=== PATIENT | male | born 1960 | race Caucasian/White ===

== ENCOUNTER 2016-05-25 15:01 | Emergency (ER) | payer OTHER ==
--- NOTE | 2016-05-25 15:31 | ED NURSING NOTES ---
Clinical Report - Nurses [facility] [address] [place] [address] 05/25/2016 15:04 Patient: HA SILVA TRIAGE Triage time 15:11. Acuity: LEVEL 3. Chief Complaint: LEFT LOWER EXTREMITY PAIN and SWELLING. Location of symptoms- (no injury). Alert. No acute distress. RACHELLE COMA SCORE: Rachelle Coma Scale: 15- eyes open spontaneously (4); best verbal response- oriented x 4 (5); best motor response- obeys commands (6). --15:28 Sylwia Kim R.N. 15:11 05/25/16. BP: 138/89. HR: 97. RR: 20. O2 saturation: 98%. Temp: 98.7 F. Pain level now: 8/10. Additional comments: inc with movement and pressure . --15:28 Sylwia Kim R.N. Weight: 142.8 kg. Height/Length: 77 inches. BMI: 37.4. --15:15 Sylwia Kim R.N. Medications Lisinopril Oral. --15:22 Sylwia Kim R.N. Magnesium Oral. --15:22 Sylwia Kim R.N. Carvedilol Phosphate ER Oral. Spironolactone Oral. --15:23 Sylwia Kim R.N. Lasix Oral. --15:23 Sylwia Kim R.N. Medication/allergy information source: the patient. --15:28 Sylwia Kim R.N. Allergies No Known Drug Allergy. --15:23 Sylwia Kim R.N. History Arrived by private vehicle. Historian: patient. 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 No injury occurred. This occurred (2 days ago). It is described as radiating to the left lower extremity and calf. Provoking / relieving factors: relieved by standing and walking. He has had swelling and trouble walking. The patient has been limping when trying to walk. 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 PAST MEDICAL HX: Hypertension. Heart disease. Tetanus status: up-to-date. ( [place]). SOCIAL HX: Never smoker. No alcohol use or drug use. FALL RISK ASSESSMENT: Fall risk assessment completed. No fall risk identified. NUTRITIONAL RISK ASSESSMENT: The nutritional risk assessment revealed no deficiencies. FUNCTIONAL ASSESSMENT: Functional assessment: no impairments noted. LEARNING NEEDS ASSESSMENT: The learning needs assessment revealed no barriers. SKIN INTEGRITY ASSESSMENT: Skin integrity risk assessment completed. No skin integrity risk identified. --15:28 Sylwia Kim R.N. Interventions ID band on patient. To room. --15:28 Sylwia Kim R.N. PHYSICAL ASSESSMENT Ambulatory to room. GENERAL / NEURO / PSYCH: Oriented X 4. Alert. Appears in no acute distress. EXTREMITIES: Erythema on the extremities. Limited ROM present. Increased warmth on the extremities. Lower extremity edema. Left foot: tenderness, swelling and erythema. Limited weight bearing secondary to pain. SKIN: Skin intact. Skin is warm and dry. --15:29 Sylwia Kim R.N. NURSING PROGRESS NOTES Extremity elevated. Two patient identifiers checked. Call light placed in reach. Side rails up x 2. Bed placed in lowest position. Brakes of bed on. Patient ready for evaluation. --15:29 Sylwia Kim R.N. 16:27 05/25/2016 Hydrocodone-APAP (Hydrocodone-Acetaminophen) PO 5/325 mg Tablets 1 tab given. Allergies verified, confirmed 5 rights and sedative warning given to the patient. --16:27 Sylwia Kim R.N. DISPOSITION / DISCHARGE Condition at departure: improved. No learning barriers present. Discharge instructions provided and reviewed with the patient. Reviewed medication(s) side effects, precautions, dosing and course information. Prescription(s) given to the patient. Patient verbalized understanding. Written instructions provided in Faroese. The patient was discharged home and accompanied by gum machine operator. He left the Emergency Department ambulatory and via private vehicle. Brewing Technician driving. Medication list reviewed and validated. --16:31 Sylwia Kim R.N. 16:28 05/25/16. BP: 144/74. HR: 84. RR: 20. O2 saturation: 98% on room air. Temp: deferred. Pain level now: 7/10. 15:11 05/25/16. BP: 138/89. HR: 97. RR: 20. O2 saturation: 98%. Temp: 98.7 F. Pain level now: 810. Additional comments: inc with movement and pressure . --16:31 Sylwia Kim R.N. 16:28 05/25/16. BP: 144/74. HR: 84. RR: 20. O2 saturation: 98% on room air. Temp: deferred. Pain level now: 10. 15:11 05/25/16. BP: 138/89. HR: 97. RR: 20. O2 saturation: 98%. Temp: 98.7 F. Pain level now: 810. Additional comments: inc with movement and pressure . --16:31 Sylwia Kim R.N. Locked/Released at 05/25/2016 16:32 by Sylwia Kim R.N.
--- NOTE | 2016-05-25 15:31 | ED CLINICAL REPORT ---
Clinical Report - Physicians/Mid Levels [facility] [address] [place] [address] 05/25/2016 15:04 Patient: HA SILVA Time Seen: 15:20; initial patient contact, initial documentation, patient care assumed. Arrived- By private vehicle. Historian- patient. HISTORY OF PRESENT ILLNESS Chief Complaint: LOWER EXTREMITY PAIN. Severity is described as being severe. The quality is noted to be "pain". No radiation. Not worsened by anything and relieved by anything. This started about 4 - 5 days ago. Symptoms located in the area of the left foot. The patient has had redness and swelling. No difficulty walking. No bladder dysfunction, bowel dysfunction, sensory loss or motor loss. Patient denies an injury. Similar symptoms previously: None. Recent medical care: Not recently seen/assessed. REVIEW OF SYSTEMS All systems otherwise negative, except as recorded above. PAST HISTORY See nurses notes. ( PAST MEDICAL HX: Hypertension. Heart disease). SOCIAL HISTORY Never smoker. No alcohol use or drug use. No recent travel. FAMILY HISTORY Negative. ADDITIONAL NOTES The nursing notes have been reviewed with agreement regarding the chief complaint, HPI, ROS, PMH and patient medications and allergies. PHYSICAL EXAM Vital Signs: 05/25/2016 15:11 BP: 138/89. HR: 97. RR: 20. O2 saturation: 98%. Temp: 98.7 F. Pain level now: 8/10. Have been reviewed as normal and appear to be correct. Appearance: Alert. Oriented X3. No acute distress. Eyes: Pupils equal, round and reactive to light. Eyes normal inspection. Respiratory: No respiratory distress. Skin: Skin intact. Skin warm and dry. Normal skin color. Normal skin turgor. Extremities: Left foot: mild erythema, tenderness and swelling of the first toe. Limited weight bearing secondary to pain. Neurovascular intact distally. No laceration, abrasion, ecchymosis, puncture wound or foreign body. No deformity. Lower extremities exhibit normal ROM. No lower extremity edema. Extremities otherwise negative. Gait: Abnormal gait. Limping gait. Neuro: Oriented X 3. No motor deficit. No sensory deficit. PROGRESS AND PROCEDURES Patient counseled in person regarding the patient's stable condition and diagnosis. 15:31. Differential Diagnosis: Other possible considerations: gout, cellulitis, abscess, fungus, bunyon. Above considerations are based on history and physical exam. Differential diagnosis was discussed with patient. Disposition: Discharged home in good and improved condition (15:31). Condition: good and stable. 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 INSTRUCTIONS Warnings: GENERAL WARNINGS: Return or contact your physician immediately if your condition worsens or changes unexpectedly, if not improving as expected, or if other problems arise. Specifically return if problem worsens. Prescription Medications: Ultram 50 mg tablets: take 1-2 orally every 6 hours as needed for pain. Dispense twenty (20). No refills. Substitution is permissible. Colchicine 0.6 mg tablets: take 1 tablet orally every 1-2 hours as needed. Do not take more than 4mg in one day. Dispense twenty (20). No refills. Follow-up: Follow up with your doctor in three days as needed. Call for an appointment. Summary of care provided to patient. Understanding of the discharge instructions verbalized by patient. (Electronically signed by Mirna Gan A.R.N.P. 05/25/2016 17:12)
--- NOTE | 2016-05-25 15:31 | ED NURSING NOTES ---
Clinical Report - Nurses [facility] [address] [place] [address] 05/25/2016 15:04 Patient: HA SILVA TRIAGE Triage time 15:11. Acuity: LEVEL 3. Chief Complaint: LEFT LOWER EXTREMITY PAIN and SWELLING. Location of symptoms- (no injury). Alert. No acute distress. RACHELLE COMA SCORE: Rachelle Coma Scale: 15- eyes open spontaneously (4); best verbal response- oriented x 4 (5); best motor response- obeys commands (6). --15:28 Sylwia Kim R.N. 15:11 05/25/16. BP: 138/89. HR: 97. RR: 20. O2 saturation: 98%. Temp: 98.7 F. Pain level now: 8/10. Additional comments: inc with movement and pressure . --15:28 Sylwia Kim R.N. Weight: 142.8 kg. Height/Length: 77 inches. BMI: 37.4. --15:15 Sylwia Kim R.N. Medications Lisinopril Oral. --15:22 Sylwia Kim R.N. Magnesium Oral. --15:22 Sylwia Kim R.N. Carvedilol Phosphate ER Oral. Spironolactone Oral. --15:23 Sylwia Kim R.N. Lasix Oral. --15:23 Sylwia Kim R.N. Medication/allergy information source: the patient. --15:28 Sylwia Kim R.N. Allergies No Known Drug Allergy. --15:23 Sylwia Kim R.N. History Arrived by private vehicle. Historian: patient. 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 No injury occurred. This occurred (2 days ago). It is described as radiating to the left lower extremity and calf. Provoking / relieving factors: relieved by standing and walking. He has had swelling and trouble walking. The patient has been limping when trying to walk. 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 PAST MEDICAL HX: Hypertension. Heart disease. Tetanus status: up-to-date. ( [place]). SOCIAL HX: Never smoker. No alcohol use or drug use. FALL RISK ASSESSMENT: Fall risk assessment completed. No fall risk identified. NUTRITIONAL RISK ASSESSMENT: The nutritional risk assessment revealed no deficiencies. FUNCTIONAL ASSESSMENT: Functional assessment: no impairments noted. LEARNING NEEDS ASSESSMENT: The learning needs assessment revealed no barriers. SKIN INTEGRITY ASSESSMENT: Skin integrity risk assessment completed. No skin integrity risk identified. --15:28 Sylwia Kim R.N. Interventions ID band on patient. To room. --15:28 Sylwia Kim R.N. PHYSICAL ASSESSMENT Ambulatory to room. GENERAL / NEURO / PSYCH: Oriented X 4. Alert. Appears in no acute distress. EXTREMITIES: Erythema on the extremities. Limited ROM present. Increased warmth on the extremities. Lower extremity edema. Left foot: tenderness, swelling and erythema. Limited weight bearing secondary to pain. SKIN: Skin intact. Skin is warm and dry. --15:29 Sylwia Kim R.N. NURSING PROGRESS NOTES Extremity elevated. Two patient identifiers checked. Call light placed in reach. Side rails up x 2. Bed placed in lowest position. Brakes of bed on. Patient ready for evaluation. --15:29 Sylwia Kim R.N. 16:27 05/25/2016 Hydrocodone-APAP (Hydrocodone-Acetaminophen) PO 5/325 mg Tablets 1 tab given. Allergies verified, confirmed 5 rights and sedative warning given to the patient. --16:27 Sylwia Kim R.N. DISPOSITION / DISCHARGE Condition at departure: improved. No learning barriers present. Discharge instructions provided and reviewed with the patient. Reviewed medication(s) side effects, precautions, dosing and course information. Prescription(s) given to the patient. Patient verbalized understanding. Written instructions provided in Azeri. The patient was discharged home and accompanied by mechanic foreman. He left the Emergency Department ambulatory and via private vehicle. Academic Interventionist driving. Medication list reviewed and validated. --16:31 Sylwia Kim R.N. 16:28 05/25/16. BP: 144/74. HR: 84. RR: 20. O2 saturation: 98% on room air. Temp: deferred. Pain level now: 7/10. 15:11 05/25/16. BP: 138/89. HR: 97. RR: 20. O2 saturation: 98%. Temp: 98.7 F. Pain level now: 810. Additional comments: inc with movement and pressure . --16:31 Sylwia Kim R.N. 16:28 05/25/16. BP: 144/74. HR: 84. RR: 20. O2 saturation: 98% on room air. Temp: deferred. Pain level now: 10. 15:11 05/25/16. BP: 138/89. HR: 97. RR: 20. O2 saturation: 98%. Temp: 98.7 F. Pain level now: 810. Additional comments: inc with movement and pressure . --16:31 Sylwia Kim R.N. Locked/Released at 05/25/2016 16:32 by Sylwia Kim R.N.
--- NOTE | 2016-05-25 17:13 | ED ORDER SUMMARY ---
..... Patient: HA SILVA OrderSheet [facility] VisitID: [id number] [address] [place] [address] 56y, M Registration Date/Time: 05/25/2016 ORDER SHEET Weight: 142.8 kg Allergies: No Known Drug Allergy GENERAL ORDERS: MEDICATION ORDERS: Hydrocodone-APAP PO 5/325 mg (NOW, HIGH ALERT MEDICATION) (15:31 05/25/2016 Nadeem A.R.N.P.) (16:27 Martita R.N.) IV FLUIDS: ORDER SHEET NOTES: [Electronically signed by Sylwia Kim R.N. (16:32 05/25/2016)] [Electronically signed by Mirna GanRMarinoN.PMarino (17:12 05/25/2016)] [Electronically locked/signed by Sylwia Kim R.N. (16:32 05/25/2016)]
--- NOTE | 2016-05-25 17:13 | ED MAR SUMMARY ---
..... Medication Administration Record [facility] [address] [place] [address] Patient: HA SILVA Visit ID: [id number] 56y, M Weight: 142.8 kg Height/Length: 77 in BMI: 37.4 ALLERGIES: No Known Drug Allergy Given 16:27 05/25/2016 Sylwia Kim R.N. Medication Administered: HYDROCODONE-APAP [PO] (HYDROCODONE-ACETAMINOPHEN), Dose: 1 tab 5/325 mg Tablets PO. Medication Ordered: Hydrocodone-APAP PO 5/325 mg (NOW, HIGH ALERT MEDICATION).
--- NOTE | 2016-05-25 17:13 | ED MED RECONCILIATION SUMMARY ---
Patient: HA SILVA Medication Reconciliation Report [facility] VisitID: [id number] [address] [place] [address] 56y, M Registration Date/Time: 05/25/2016 Weight: 142.8 kg Height/Length: 77 in. BMI: 37.4 ALLERGIES: No Known Drug Allergy The patient's Home Medications are listed below: THE FOLLOWING MEDICATIONS NEED TO BE RECONCILED: Carvedilol Phosphate ER Oral Lasix Oral Lisinopril Oral Magnesium Oral Spironolactone Oral The source(s) of the original Home Medication information: patient The following Medications were given to the patient in the Emergency Department: Hydrocodone-APAP [PO] PO 1 tab, administered: 05/25/2016 4:27:00 PM The following Medications were prescribed to the patient: Ultram 50 mg tablets: take 1-2 orally every 6 hours as needed for pain. Dispense twenty (20). No refills. Substitution is permissible. -- Mirna Gan A.R.N.P. Colchicine 0.6 mg tablets: take 1 tablet orally every 1-2 hours as needed. Do not take more than 4mg in one day. Dispense twenty (20). No refills. -- Mirna Gan A.R.N.P.
--- NOTE | 2016-05-25 17:13 | ED DISCHARGE INSTRUCTIONS ---
Patient: HA SILVA General Instructions 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 INSTRUCTIONS Warnings: GENERAL WARNINGS: Return or contact your physician immediately if your condition worsens or changes unexpectedly, if not improving as expected, or if other problems arise. Specifically return if problem worsens. Prescription Medications: Ultram 50 mg tablets: take 1-2 orally every 6 hours as needed for pain. Dispense twenty (20). No refills. Substitution is permissible. Colchicine 0.6 mg tablets: take 1 tablet orally every 1-2 hours as needed. Do not take more than 4mg in one day. Dispense twenty (20). No refills. Follow-up: Follow up with your doctor in three days as needed. Call for an appointment. Summary of care provided to patient. Understanding of the discharge instructions verbalized by patient. ADDITIONAL INFORMATION Gout Gout or "gouty arthritis" is an inflammation of a joint due to a build-up of gout crystals in the joint fluid. This occurs when there is an excess uric acid (a normal waste product) in the body. Uric acid builds up in the body when the kidneys are unable to filter enough of it from the blood. This may occur with aging or kidney disease. Gout occurs more often in persons with obesity, diabetes, hypertension, high fats in the blood. It may be present in other family members. Alcohol and certain foods (such as shellfish and alcohol) may increase uric acid levels in the blood and cause a gout attack. Gout causes a hot, red, swollen and painful joint. If you have had one episode of gout, you are likely to have another. An acute attack of gout can be treated with anti-inflammatory and other medicine. If these attacks become frequent it may be necessary to take a daily medicine to help the kidney remove uric acid from the body. Home Care: Apply an ice pack (ice cubes in a plastic bag, wrapped in a towel) over the injured area for 20 minutes every 1-2 hours the first day for pain relief. Continue this 3-4 times a day until the pain and swelling goes away. Avoid alcohol and foods listed below (see Prevention) during a gout attack. Drink extra fluid to help flush the uric acid through your kidneys. Rest painful joints. If gout affects the joints of your foot or leg, you may want to use crutches for the first few days to keep from bearing weight on the foot or leg. Take anti-inflammatory medicine as directed. You may be prescribed Indocin (indomethacin), or [id number] drugs such as ibuprofen (Motrin, Advil) or naproxen (Naprosyn or Aleve). Tylenol will not be as effective since it is not an anti-inflammatory drug. If narcotic pain medicines have been prescribed, they should be used in addition to the anti-inflammatory drugs and only for severe pain. Avoid aspirin since this may slow down the flushing of the uric acid through your kidneys. Preventing Future Attacks: Minimize or avoid alcohol use. Excess alcohol intake can cause a gout attack. Foods high in purine form uric acid in the body and increase your risk for a gout attack. Therefore, avoid the following foods: certain seafoods (anchovies, sardines, shrimp, scallops, leigh, mackerel); wild game, meat extracts and meat gravies; organ foods (kidney, liver, calf brain, sweetbreads). Avoid drinks with fructose (a type of sugar). Limit the following foods to one serving a day: red meat and pork, fish, poultry, dried beans and peas, asparagus, mushrooms, cauliflower and spinach. If you are overweight, this is a risk factor and you should talk to your doctor about a weight reduction plan. However, avoid fasting or extreme low calorie diets (less than 900 nelson/day) which will increase uric acid levels in the body. If you are diabetic or have high blood pressure, work with your doctor to achieve control of these conditions. Avoid injury to the involved joint since this can lead to a gout attack. Colchicine can be effective in stopping a gout attack. If you were given a prescription of this medicine for future use, begin it at the first sign of an attack. Colchicine may cause nausea, vomiting, diarrhea and other side effects. Follow Up with your doctor as advised or if you are not improving after three days of treatment. Get Prompt Medical Attention if any of the following occur: Fever over 100.4F (38.0C) with worsening joint pain Increasing redness around the joint Pain developing in another joint Repeated vomiting, abdominal pain, or blood in the vomit or stool (black or red color) Tramadol Hydrochloride Oral tablet What is this medicine? TRAMADOL (TRA ma dole) is a pain reliever. It is used to treat moderate to severe pain in adults. How should I use this medicine? Take this medicine by mouth with a full glass of water. Follow the directions on the prescription label. If the medicine upsets your stomach, take it with food or milk. Do not take more medicine than you are told to take. Talk to your whiting can worker regarding the use of this medicine in children. Special care may be needed. What side effects may I notice from receiving this medicine? Side effects that you should report to your doctor or health behavioral health care coordinator as soon as possible: allergic reactions like skin rash, itching or hives, swelling of the face, lips, or tongue breathing difficulties, wheezing confusion itching light headedness or fainting spells redness, blistering, peeling or loosening of the skin, including inside the mouth seizures Side effects that usually do not require medical attention (report to your doctor or health behavioral health care coordinator if they continue or are bothersome): constipation dizziness drowsiness headache nausea, vomiting What may interact with this medicine? Do not take this medicine with any of the following medications: MAOIs like Carbex, Eldepryl, Marplan, Nardil, and Parnate This medicine may also interact with the following medications: alcohol or medicines that contain alcohol antihistamines benzodiazepines bupropion carbamazepine or oxcarbazepine clozapine cyclobenzaprine digoxin furazolidone linezolid medicines for depression, anxiety, or psychotic disturbances medicines for migraine headache like almotriptan, eletriptan, frovatriptan, naratriptan, rizatriptan, sumatriptan, zolmitriptan medicines for pain like pentazocine, buprenorphine, butorphanol, meperidine, nalbuphine, and propoxyphene medicines for sleep muscle relaxants naltrexone phenobarbital phenothiazines like perphenazine, thioridazine, chlorpromazine, mesoridazine, fluphenazine, prochlorperazine, promazine, and trifluoperazine procarbazine warfarin What if I miss a dose? If you miss a dose, take it as soon as you can. If it is almost time for your next dose, take only that dose. Do not take double or extra doses. Where should I keep my medicine? Keep out of the reach of children. Store at room temperature between 15 and 30 degrees C (59 and 86 degrees F). Keep container tightly closed. Throw away any unused medicine after the expiration date. What should I tell my health care provider before I take this medicine? They need to know if you have any of these conditions: brain tumor depression drug abuse or addiction head injury if you frequently drink alcohol containing drinks kidney disease or trouble passing urine liver disease lung disease, asthma, or breathing problems seizures or epilepsy suicidal thoughts, plans, or attempt; a previous suicide attempt by you or a family member an unusual or allergic reaction to tramadol, codeine, other medicines, foods, dyes, or preservatives or trying to get breast-feeding What should I watch for while using this medicine? Tell your doctor or health behavioral health care coordinator if your pain does not go away, if it gets worse, or if you have new or a different type of pain. You may develop tolerance to the medicine. Tolerance means that you will need a higher dose of the medicine for pain relief. Tolerance is normal and is expected if you take this medicine for a long time. Do not suddenly stop taking your medicine because you may develop a severe reaction. Your body becomes used to the medicine. This does NOT mean you are addicted. Addiction is a behavior related to getting and using a drug for a non-medical reason. If you have pain, you have a medical reason to take pain medicine. Your doctor will tell you how much medicine to take. If your doctor wants you to stop the medicine, the dose will be slowly lowered over time to avoid any side effects. You may get drowsy or dizzy. Do not drive, use machinery, or do anything that needs mental alertness until you know how this medicine affects you. Do not stand or sit up quickly, especially if you are an older patient. This reduces the risk of dizzy or fainting spells. Alcohol can increase or decrease the effects of this medicine. Avoid alcoholic drinks. You may have constipation. Try to have a bowel movement at least every 2 to 3 days. If you do not have a bowel movement for 3 days, call your doctor or health behavioral health care coordinator. Your mouth may get dry. Chewing sugarless gum or sucking hard candy, and drinking plenty of water may help. Contact your doctor if the problem does not go away or is severe. You have been given the following additional information: Gouty Arthritis Tramadol Hydrochloride Oral tablet (Electronically signed by Mirna Gan A.R.N.P. 05/25/2016 17:12)
--- NOTE | 2016-05-25 17:13 | ED ORDER SUMMARY ---
..... Patient: HA SILVA OrderSheet [facility] VisitID: [id number] [address] [place] [address] 56y, M Registration Date/Time: 05/25/2016 ORDER SHEET Weight: 142.8 kg Allergies: No Known Drug Allergy GENERAL ORDERS: MEDICATION ORDERS: Hydrocodone-APAP PO 5/325 mg (NOW, HIGH ALERT MEDICATION) (15:31 05/25/2016 Nadeem A.R.N.P.) (16:27 Martita R.N.) IV FLUIDS: ORDER SHEET NOTES: [Electronically signed by Sylwia Kim R.N. (16:32 05/25/2016)] [Electronically signed by Mirna GanRMarinoN.PMarino (17:12 05/25/2016)] [Electronically locked/signed by Sylwia Kim R.N. (16:32 05/25/2016)]
--- NOTE | 2016-05-25 17:13 | ED MAR SUMMARY ---
..... Medication Administration Record [facility] [address] [place] [address] Patient: HA SILVA Visit ID: [id number] 56y, M Weight: 142.8 kg Height/Length: 77 in BMI: 37.4 ALLERGIES: No Known Drug Allergy Given 16:27 05/25/2016 Sylwia Kim R.N. Medication Administered: HYDROCODONE-APAP [PO] (HYDROCODONE-ACETAMINOPHEN), Dose: 1 tab 5/325 mg Tablets PO. Medication Ordered: Hydrocodone-APAP PO 5/325 mg (NOW, HIGH ALERT MEDICATION).
--- NOTE | 2016-05-25 17:13 | ED MED RECONCILIATION SUMMARY ---
Patient: HA SILVA Medication Reconciliation Report [facility] VisitID: [id number] [address] [place] [address] 56y, M Registration Date/Time: 05/25/2016 Weight: 142.8 kg Height/Length: 77 in. BMI: 37.4 ALLERGIES: No Known Drug Allergy The patient's Home Medications are listed below: THE FOLLOWING MEDICATIONS NEED TO BE RECONCILED: Carvedilol Phosphate ER Oral Lasix Oral Lisinopril Oral Magnesium Oral Spironolactone Oral The source(s) of the original Home Medication information: patient The following Medications were given to the patient in the Emergency Department: Hydrocodone-APAP [PO] PO 1 tab, administered: 05/25/2016 4:27:00 PM The following Medications were prescribed to the patient: Ultram 50 mg tablets: take 1-2 orally every 6 hours as needed for pain. Dispense twenty (20). No refills. Substitution is permissible. -- Mirna Gan A.R.N.P. Colchicine 0.6 mg tablets: take 1 tablet orally every 1-2 hours as needed. Do not take more than 4mg in one day. Dispense twenty (20). No refills. -- Mirna Gan A.R.N.P.
== END 2016-05-25 16:32 | disposition home or self-care (01) ==
LOC: ED SRH 15:01
DX: M10.072 Idiopathic gout, left ankle and foot (principal); M13.172 Monoarthritis, not elsewhere classified, left ankle and foot; I10 Essential (primary) hypertension; Z79.899 Other long term (current) drug therapy